=== PATIENT | female | born 1965 | race African-American/Black ===

== ENCOUNTER 2020-08-28 20:03 | Emergency (ER) | payer MEDICARE, SELFPAY ==
[2020-08-28 20:19] VITALS: BP 118/98; PULSE 85; RESP 16; TEMP 36.7; O2SAT 96
[2020-08-28 21:23] LABS: Glucose Point of Care 187 mg/dl (65-105)
[2020-08-28] MEDS: SODIUM CHLORIDE 0.9% IV 1,000 ML 999 ML IV CONT (21:45)
[2020-08-28 21:49] LABS: Basophils Absolute Auto 0.1 K/mm3 (0.0-0.1); Basophils Percent Auto 0.9 % (0.2-1.2); Eosinophils Absolute Auto 0.1 K/mm3 (0-0.3); Eosinophils Percent Auto 1.4 % (0-4.4); Hematocrit 45.7 % (37.0-47.0); Hemoglobin 14.1 g/dL (12.0-15.0); Immature Granulocyte Absolute 0.02 K/mm3 (0.00-0.031); Immature Granulocyte Percent A 0.3 % (0-0.5); Lymphocytes Absolute Auto 2.36 K/mm3 (0.9-3.2); Lymphocytes Percent Auto 33.5 % (18.3-44.2); Mean Corpuscular HGB Conc 30.9 g/dl (32-36); Mean Corpuscular Hemoglobin 22.9 pg (26-34); Mean Corpuscular Volume 74.2 fl (80-100); Monocytes Absolute Auto 0.5 K/mm3 (0.1-0.6); Monocytes Percent Auto 7.1 % (2.6-8.5); Neutrophils Percent Auto 56.8 % (45.5-73.1); Platelet Count Result 346 k/mm3 (150-375); Red Blood Count 6.16 M/mm3 (4.2-5.4); Red Cell Distribution Width 18.1 % (11.5-14.5); White Blood Count 7.1 K/mm3 (4.5-10.0)
[2020-08-28 21:53] LABS: Add Urine Microscopic? YES; Appearance Urine Clear (Clear); Bilirubin Urine Negative (Negative); Blood Urine Negative (Negative); Color Urine Yellow (Yellow); Glucose Urine UA 3+ mg/dL (Negative); Ketones Urine Negative (Negative); Leukocyte Esterase Ur Negative LEU/UL (Negative); Mucus Urine Rare /lpf; Nitrate Urine Negative (Negative); Protein Urine Negative (Negative); Squamous Epithelial Cell Urine Rare /hpf (Few); Urobilinogen Urine Negative mg/dL (<2.0); WBC Urine 0-3 /hpf
[2020-08-28 21:55] LABS: Specific Grav Ur 1.033 (1.001-1.035)
[2020-08-28 22:50] VITALS: BP 124/82; PULSE 84; RESP 14; O2SAT 97
[2020-08-28 23:20] LABS: Alanine Aminotransferase 43 U/L (4-35); Albumin Level 3.6 g/dL (3.5-5.1); Alkaline Phosphatase 98 U/L (38-126); Anion Gap 1 mmol/L (8-16); Aspartate Amino Transferase 34 U/L (14-36); Bilirubin,Total 0.5 mg/dL (0.2-1.3); Blood Urea Nitrogen 11 mg/dL (7-17); Calcium 8.4 mg/dL (8.4-10.2); Carbon Dioxide 28 mmol/L (22-30); Chloride 108 mmol/L (98-107); Estimated CRCL calculation 106 ml/min; Estimated Glomerular Filt Rate > 60; Glucose 145 mg/dL (65-105); Magnesium 2.2 mg/dL (1.6-2.3); Phosphorus 3.6 mg/dL (2.5-4.5); Potassium 3.9 mmol/L (3.4-5.0); Sodium 137 mmol/L (137-145)
--- NOTE | 2020-08-28 23:28 | ED.GENADULT ---
HPI - General Adult General Chief complaint: Recheck/Abnormal Lab/Rx Stated complaint: high Blood sugar for 2 weeks Time Seen by Provider: 08/28/20 21:00 History of Present Illness HPI narrative: Patient is a 55-year-old female who presents ER with concerns of elevated blood sugar. She checked her sugar at home and it was 270. This is high for her. She reports she got off of her schedule for taking medications last week and since developed some intermittent diarrhea. No nausea/vomiting. No fevers or chills or sweats. She feels like she is getting dehydrated and would like to make sure her labs are normal. She has anxiety about developing poorly controlled diabetes where she may require insulin as opposed to oral therapy. Related Data Allergies Allergy/AdvReac Type Severity Reaction Status Date / Time Penicillins Allergy Hives Verified 08/28/20 20:21 Review of Systems Review of Systems: All systems reviewed & are unremarkable except as noted in HPI and below Constitutional: Constitutional: Denies chills, Denies fever(s) and Denies weakness Gastrointestinal: Gastrointestinal: Denies abdominal pain, Reports diarrhea, Denies nausea and Denies vomiting Genitourinary: Genitourinary: Denies hematuria, Denies nocturia and Denies dysuria Musculoskeletal: Musculoskeletal: Denies back pain and Denies muscle cramps PMFSH Past Medical History Medical History (Updated 08/28/20 @ 23:34 by Brendan Garcia MD) Diabetes Hyperlipidemia Surgical History Surgical History (Updated 08/28/20 @ 23:31 by Brendan Garcia MD) History of appendectomy History of cholecystectomy History of hysterectomy Social History Social History (Updated 08/28/20 @ 23:31 by Brendan Garcia MD) Smoking status: Current every day smoker Exam Narrative: Exam Narrative: GENERAL: Well-appearing, obese, and in no acute distress. HEAD: Normocephalic, atraumatic. ENT: Mucous membranes moist. CHEST: Clear to auscultation. No respiratory distress. HEART: Regular rate and rhythm. Normal peripheral pulses. ABDOMEN: Soft, nontender, nondistended. EXTREMITIES: Normal range of motion. No edema. SKIN: Warm, dry, no rash. NEURO: Alert and oriented x3. Course Course Emergency Course: Feels well, hydrated. Informed of results. Discharge home. Vital Signs Vital signs: Vital Signs Temperature 98.0 F 08/28/20 20:19 Pulse Rate 85 08/28/20 20:19 Respiratory Rate 16 08/28/20 20:19 Blood Pressure 118/98 H 08/28/20 20:19 Pulse Oximetry 96 08/28/20 20:19 Temperature 98.0 F 08/28/20 20:19 Pulse Rate 84 08/28/20 22:50 Respiratory Rate 14 08/28/20 22:50 Blood Pressure 124/82 08/28/20 22:50 Pulse Oximetry 97 08/28/20 22:50 Medical Decision Making Vital Signs Vital Signs: Vital Signs Temperature 98.0 F 08/28/20 20:19 Pulse Rate 85 08/28/20 20:19 Respiratory Rate 16 08/28/20 20:19 Blood Pressure 118/98 H 08/28/20 20:19 Pulse Oximetry 96 08/28/20 20:19 Temperature 98.0 F 08/28/20 20:19 Pulse Rate 84 08/28/20 22:50 Respiratory Rate 14 08/28/20 22:50 Blood Pressure 124/82 08/28/20 22:50 Pulse Oximetry 97 08/28/20 22:50 Lab Data Result diagrams: 08/28/20 21:44 08/28/20 22:47 Labs: Lab Results 08/28/20 08/28/20 08/28/20 Range/Units 21:19 21:44 21:44 WBC 7.1 (4.5-10.0) K/mm3 RBC 6.16 H (4.2-5.4) M/mm3 Hgb 14.1 (12.0-15.0) g/dL Hct 45.7 (37.0-47.0) % MCV 74.2 L (80-100) fl MCH 22.9 L (26-34) pg MCHC 30.9 L (32-36) g/dl RDW 18.1 H (11.5-14.5) % Plt Count 346 (150-375) k/mm3 MPV 11.0 H (7.4-10.4) fl Immature Gran % (Auto) 0.3 (0-0.5) % Neut % (Auto) 56.8 (45.5-73.1) % Lymph % (Auto) 33.5 (18.3-44.2) % [place] % (Auto) 7.1 (2.6-8.5) % Eos % (Auto) 1.4 (0-4.4) % Baso % (Auto) 0.9 (0.2-1.2) % Lymph # (Auto) 2.36 (0.9-3.2) K/mm3 [place] # (Auto) 0.5 (0.1-0.6
== END 2020-08-28 23:50 | disposition home or self-care (01) ==
PROVIDERS: Emergency Provider Emergency Medicine
DX: E11.65 Type 2 diabetes mellitus with hyperglycemia (principal); E78.5 Hyperlipidemia, unspecified; Z79.84 Long term (current) use of oral hypoglycemic drugs; F17.200 Nicotine dependence, unspecified, uncomplicated
CPT/HCPCS: 36415; 80053; 81001; 81025; 82948; 83735; 84100; 85025; 99283; J7030